=== PATIENT | male | born 1945 | race Two or more races ===

== ENCOUNTER 2020-06-26 08:30 | Inpatient (IN) | payer OTHER ==
[2020-06-26] MEDS ORDERED: ZYLOPRIM100 M1 PO (10:49)
[2020-06-26] MEDS ORDERED: JANUVIA50 MG PO (10:49)
[2020-06-26] MEDS ORDERED: SIMVASTATIN10 MG PO (10:49)
[2020-06-26] MEDS ORDERED: TAMS0.4C PO (10:51)
[2020-06-26] MEDS ORDERED: PROTONIX40 MG PO (10:51)
[2020-06-26] MEDS ORDERED: GABAPENTIN400 MG PO (10:51)
== END 2020-07-03 17:53 | disposition designated cancer center or children's hospital (05) | DRG 416 ==
LOC: ADM 08:30 → CIR.AMB 07-03 06:00 → O/R 07-03 07:00 → CIR.AMB 07-03 07:20 → EDSTATUS 07-03 08:30 → CIR.AMB 07-03 08:30 → O/R 07-03 13:30 → CIR.AMB 07-03 14:30 → O/R 07-03 14:49 → SURH 07-03 14:49 → O/R 07-03 17:53 → SURH 07-03 21:30
PROVIDERS: ADMIT Surgery; ATTEND Surgery
PROC: 0FJ44ZZ Inspection of Gallbladder, Percutaneous Endoscopic Approach (ICD-10-PCS; 2020-07-03)
PROC: BF10YZZ Fluoroscopy of Bile Ducts using Other Contrast (ICD-10-PCS; 2020-07-03)
PROC: 0FT40ZZ Resection of Gallbladder, Open Approach (ICD-10-PCS; principal; 2020-07-03 14:30)
DX: K80.11 Calculus of gallbladder with chronic cholecystitis with obstruction (principal); Z20.828 Contact with and (suspected) exposure to other viral communicable diseases